=== PATIENT | male | born 1945 | race Caucasian/White ===

== ENCOUNTER 2020-03-06 14:28 | Emergency (ER) | payer OTHER ==
[~2020-03-06] VITALS: Ht 162.6 cm; Wt 65.8 kg
[2020-03-06] MEDS ORDERED: GLUMETZA1000 MG (14:55)
[2020-03-06] MEDS ORDERED: LOPRESSOR25 MG (14:55)
[2020-03-06] MEDS ORDERED: TAMS0.4C (14:55)
[2020-03-06] MEDS ORDERED: SIMVASTATIN80 MG (14:55)
[2020-03-06] MEDS ORDERED: CELEXA20 MG (14:56)
[2020-03-06] MEDS ORDERED: NORVASC5 MG (14:56)
[2020-03-06] MEDS ORDERED: PLAVIX75 MG (14:56)
[2020-03-06] MEDS ORDERED: PROSCAR5 MG (14:56)
[2020-03-06] MEDS ORDERED: ISOSORBIDE MONO60 MG (14:56)
[2020-03-06] MEDS ORDERED: LEVOTHYROXINE25 MCG (14:56)
[2020-03-06] MEDS ORDERED: ZESTRIL20 MG (14:57)
[2020-03-06] MEDS ORDERED: ASPIR 8181 MG (14:57)
== END 2020-03-06 20:23 | disposition home or self-care (01) ==
LOC: ER 14:28 → EDBD 14:28 → ER 14:31
DX: H66.91 Otitis media, unspecified, right ear (principal); H75.01 Mastoiditis in infectious and parasitic diseases classified elsewhere, right ear